=== PATIENT | male | born 1990 | race African-American/Black ===

== ENCOUNTER 2018-03-16 02:53 | Emergency (ER) | payer OTHER | END 2018-03-16 03:35 | disposition home or self-care (01) | LOC: FTE 02:53 | DX: B35.4 Tinea corporis (principal) | CPT/HCPCS: 99283; Z7502 ==

== ENCOUNTER 2018-05-10 01:58 | Emergency (ER) | payer OTHER ==
[2018-05-10] MEDS: CEFTRIAXONE 250 MG INJ IM (02:59)
[2018-05-10] MEDS: AZITHROMYCIN 250 MG TAB PO (02:59)
[2018-05-10 03:34] LABS: ADD UMIC YES; UR ASCORBIC ACID NEGATIVE (NEGATIVE); UR BACTERIA FEW /HPF (NONE SEEN); UR BILIRUBIN (Dip) NEGATIVE (NEGATIVE); UR BLOOD (Dip) NEGATIVE (NEGATIVE); UR CLARITY CLOUDY (CLEAR); UR COLOR YELLOW (YELLOW); UR GLUCOSE (Dip) NEGATIVE (NEGATIVE); UR KETONES (Dip) NEGATIVE (NEGATIVE); UR LEUKOCYTE ESTERASE (Dip) 3+ Leu/ul (NEGATIVE); UR NITRITE (Dip) NEGATIVE (NEGATIVE); UR RBC 8 /HPF (0-5); UR SPECIFIC GRAVITY (Dip) 1.021 (1.003-1.030); UR TOTAL PROTEIN (Dip) NEGATIVE (NEGATIVE); UR UROBILINOGEN (Dip) NEGATIVE (NEGATIVE); UR WBC > 182 /HPF (0-5)
== END 2018-05-10 03:15 | disposition home or self-care (01) ==
LOC: FTE 01:58
DX: A64 Unspecified sexually transmitted disease (principal)
CPT/HCPCS: 81001; 87086; 87591; 96372; 99284-25

== ENCOUNTER 2018-06-24 10:04 | Emergency (ER) | payer OTHER | END 2018-06-24 11:31 | disposition home or self-care (01) | LOC: FTE 10:04 | DX: M54.6 Pain in thoracic spine (principal); R07.89 Other chest pain; M25.562 Pain in left knee; M54.2 Cervicalgia | CPT/HCPCS: 71046; 99283-25 ==

== ENCOUNTER 2018-07-02 21:38 | Emergency (ER) | payer OTHER ==
[2018-07-02] MEDS: KETOROLAC 60 MG INJ IM (23:08)
== END 2018-07-02 23:26 | disposition home or self-care (01) ==
LOC: FTE 21:38
DX: R51 Headache (principal); F07.81 Postconcussional syndrome
CPT/HCPCS: 96372; 99284-25